=== PATIENT | male | born 1955 | race Caucasian/White ===

== ENCOUNTER 2017-05-25 10:20 | Emergency (ER) | payer BC, OTHER ==
[~2017-05-25] VITALS: Ht 162.6 cm; Wt 104.5 kg
[2017-05-25 10:28] VITALS: Ht 162.6 cm; Wt 104.5 kg
[2017-05-25] MEDS ORDERED: ONDANSETRON 4 MG INJ IV STA (10:58)
[2017-05-25] MEDS ORDERED: morphine 4 MG/ML VIAL IV STA (10:58)
[2017-05-25 11:47] LABS: BASOPHIL # 0.1 10^3/ul (0.0-0.1); BASOPHILS % 0.8 % (0.0-2.0); EOSINOPHILS # 0.2 10^3/ul (0.0-0.5); EOSINOPHILS % 2.3 % (0.0-7.0); HEMATOCRIT 41.5 % (42.0-52.0); HEMOGLOBIN 14.4 g/dl (14.0-18.0); LYMPHOCYTES # 3.9 10^3/ul (0.8-2.9); LYMPHOCYTES % 48.5 % (15.0-51.0); MEAN CORPUSCULAR HEMOGLOBIN 32.5 pg (29.0-33.0); MEAN CORPUSCULAR HGB CONC 34.7 g/dl (32.0-37.0); MEAN CORPUSCULAR VOLUME 93.7 fl (82.0-101.0); MEAN PLATELET VOLUME 10.8 fl (7.4-10.4); MONOCYTE # 0.9 10^3/ul (0.3-0.9); MONOCYTES % 11.1 % (0.0-11.0); NEUTROPHIL # 2.9 10^3/ul (1.6-7.5); PLATELET COUNT 128 10^3/UL (140-415); POSITIVE DIFF @See below; RED BLOOD COUNT 4.43 10^6/ul (4.70-6.10); RED CELL DISTRIBUTION WIDTH 12.3 % (11.5-14.5); WHITE BLOOD COUNT 7.9 10^3/ul (4.8-10.8)
[2017-05-25 11:50] LABS: ALBUMIN 4.4 g/dl (3.3-4.9); BILIRUBIN,INDIRECT 0.8 mg/dl (0-1.1); BILIRUBIN,TOTAL 0.8 mg/dl (0.2-1.3); CALCIUM 9.3 mg/dl (8.4-10.2); CREATININE 0.78 mg/dl (0.61-1.24); POTASSIUM 4.2 mmol/L (3.5-5.1)
[2017-05-25 11:55] LABS: ALBUMIN/GLOBULIN RATIO 1.33
[2017-05-25 11:58] LABS: TOTAL PROTEIN 7.7 g/dl (6.1-8.1)
--- NOTE | 2017-05-25 12:53 | RADRPT ---
PROCEDURE: CT Brain without contrast. CLINICAL INDICATION: Headache TECHNIQUE: A CT of the brain was performed on a multidetector CT scanner utilizing axial imaging f rom the skull base through the vertex without IV contrast. Multiplanar reformatted images were made . Images were reviewed on a PACS workstation. The CTDIvol is 43 mGy and the DLP is eighth 720 mGyc m. Individualized dosed optimization technique was used for the performance of this exam. This included 1. Automated exposure control. 2. Adjustment of the mA and / or kV according to the patient's size. 3. The use of iterative reconstruction technique. COMPARISON: None FINDINGS: There is no intracranial hemorrhage, mass effect, or midline shift. No extra-axial fluid collection is seen. The ventricles and sulci are normal in size and configuration. The density of the brain is normal, and the patricia white matter differentiation appears well-preserved. The visualized paranasal sinuses and osseous structures are grossly unremarkable. IMPRESSION: 1. No evidence of acute intracranial pathology. 2. The brain is normal in appearance. .Emory Leger MD, Date Time Electronically viewed and signed by .Emory Leger MD, on 05/25/2017 12:53 .A/
[2017-05-25] MEDS ORDERED: CEFTRIAXONE 1 GM/50 ML (PMX) 50 ML IVPB ONE (13:00)
[2017-05-25 13:02] VITALS: BP 133/75; PULSE 69; RESP 20
--- NOTE | 2017-05-25 13:28 | ERD ---
ER Documentation Chief Complaint Date/Time DATE: 05/25/17 TIME: 13:15 Chief Complaint PT with severe PENDLETON, has a healed ulcer on back. HPI 61-year-old male complaining of right-sided headache 3 days. Described headache as severe and constant, located in the right occipital to right parietal region. Patient reports lesions on the top of his scalp in the last 3 days. He also has a scab in the occipital region for the last month. Patient had left facial abscess about 1 year ago. Denies history of diabetes, hypertension, or other medical problems. He only takes vitamin supplements daily. ROS All systems reviewed and are negative except as per history of present illness. Medications Home Meds No Active Prescriptions or Reported Meds Allergies Allergies: Coded Allergies: No Known Allergy (Unverified , 01/04/16) PMhx/Soc History of Surgery: Yes (HERNIA ) Anesthesia Reaction: No Hx Alcohol Use: Yes Hx Substance Use: No Hx Tobacco Use: No Physical Exam Vitals Vital Signs Date Time Temp Pulse Resp B/P Pulse Ox O2 Delivery O2 Flow Rate FiO2 05/25/17 13:02 69 20 133/75 97 05/25/17 10:28 98.1 84 20 157/97 96 Physical Exam General: Well-developed, well-nourished, conscious and coherent, in no distress Skin: Warm and dry without rash, good texture and turgor Head: Normocephalic without evidence of trauma. A 2 cm area of skin ulcer closed by scab in the occipital region. No wound drainage. There are 2 erythematous lesions on the top of the scalp, approximately 2 cm in size each, all open without drainage. Right occipital and parietal area scalp tender to palpation, no induration or fluctuance. Eyes: Sclera and conjunctivae normal; pupils equal, round, and reactive to light; extraocular movements are intact Ears: Canals are patent. Tympanic membranes are clear Nose/Face: Without rhinorrhea Mouth/throat: Mucous membranes are moist. Posterior pharynx clear without erythema or exudates Neck: Supple without meningismus or adenopathy. Carotids are equal. Trachea midline. No bruits or JVD Chest: Normal AP diameter. Good expansion without retractions. Nontender. Lungs are clear to auscultate bilaterally with good tidal volume Heart: Regular rate and rhythm. No murmur, rub, or gallops heard Abdomen: Soft and nontender without masses, guarding, or rebound. Bowel sounds are active. No hepatosplenomegaly Extremities: Full range of motion. Good strength bilaterally. No clubbing, cyanosis, or edema. Peripheral pulses are intact. Sensation intact Neuro: Alert and oriented 4; GCS 15. Cranial nerves II - XII intact. Motor sensory exam nonfocal. Moves all extremities. Deep tendon reflexes 2+ in all extremities. Speech clear. No pronator drift. Gait steady. Result Diagram: 05/25/17 1100 05/25/17 1100 Results 24 hrs Laboratory Tests Test 05/25/17 11:00 White Blood Count 7.910^3/ul Red Blood Count 4.4310^6/ul Hemoglobin 14.4g/dl Hematocrit 41.5% Mean Corpuscular Volume 93.7fl Mean Corpuscular Hemoglobin 32.5pg Mean Corpuscular Hemoglobin Concent 34.7g/dl Red Cell Distribution Width 12.3% Platelet Count 78461^3/UL Mean Platelet Volume 10.8fl Neutrophils % 37.0% Lymphocytes % 48.5% Monocytes % 11.1% Eosinophils % 2.3% Basophils % 0.8% Nucleated Red Blood Cells % 0.0/100WBC Neutrophils # 2.910^3/ul Lymphocytes # 3.910^3/ul Monocytes # 0.910^3/ul Eosinophils # 0.210^3/ul Basophils # 0.110^3/ul Nucleated Red Blood Cells # 0.010^3/ul Sodium Level 137mmol/L Potassium Level 4.2mmol/L Chloride Level 101mmol/L Carbon Dioxide Level 26mmol/L Anion Gap 14 Blood Urea Nitrogen 12mg/dl Creatinine 0.78mg/dl Glucose Level 237mg/dl Calcium Level 9.3mg/dl Total Bilirubin 0.8mg/dl Direct Bilirubin 0.00mg/dl Indirect Bilirubin 0.8mg/dl Aspartate Amino Transf (AST/SGOT) 87IU/L Alanine Aminotransferase (ALT/SGPT) 71IU/L Alkaline Phosphatase 85IU/L Total Protein 7.7g/dl Albumin 4.4g/dl Globulin 3.30g/dl Albumin/Globulin Ratio 1.33 Current Medications Medications (Trade) Dose Ordered Sig/Johan Route PRN Reason Start Time Stop Time Status Last Admin Dose Admin Morphine Sulfate (morphine) 4 mg ONCE STAT IV 05/25/17 10:58 05/25/17 11:01 DC 05/25/17 11:22 Ondansetron HCl 4 mg 4 mg ONCE STAT IV 05/25/17 10:58 05/25/17 11:01 DC 05/25/17 11:22 Ceftriaxone Sodium (Rocephin) 50 ml @ 100 mls/hr ONCE ONCE IVPB 05/25/17 13:00 05/25/17 13:29 05/25/17 13:21 PROCEDURE: CT Brain without contrast. CLINICAL INDICATION: Headache TECHNIQUE: A CT of the brain was performed on a multidetector CT scanner utilizing axial imaging from the skull base through the vertex without IV contrast. Multiplanar reformatted images were made. Images were reviewed on a PACS workstation. The CTDIvol is 43 mGy and the DLP is eighth 720 mGycm. Individualized dosed optimization technique was used for the performance of this exam. This included 1. Automated exposure control. 2. Adjustment of the mA and / or kV according to the patient's size. 3. The use of iterative reconstruction technique. COMPARISON: None FINDINGS: There is no intracranial hemorrhage, mass effect, or midline shift. No extra- axial fluid collection is seen. The ventricles and sulci are normal in size and configuration. The density of the brain is normal, and the patricia white matter differentiation appears well-preserved. The visualized paranasal sinuses and osseous structures are grossly unremarkable. IMPRESSION: 1. No evidence of acute intracranial pathology. 2. The brain is normal in appearance. .Emory Leger MD, MD Date Time Electronically viewed and signed by .Emory Leger MD, on 05/25/2017 12: 53 .A/ CC: SELENA JEFFRIES [employer] Procedures/MDM 61-year-old male present ED with headache, likely secondary to scalp infection. CT head was obtained, no intracranial pathology is noted. No osseous abnormalities. WBC is not elevated. CMP is unremarkable except for glucose of 237, and mildly elevated AST and ALT. There does not appear to be bony involvement of his scalp infection. Patient denies having history of diabetes, his blood sugar is elevated. Patient has previously undiagnosed diabetes. Patient given morphine 4 mg and Zofran 4 mg IV in the ED. Patient reports improvement pain after the medications. Rocephin 1 g IV piggyback also given to the patient in the ED. Patient state that he does not have PCP, referral to community clinic is provided for the patient. Patient advised to follow-up with PCP for diabetes management. Metformin is prescribed for the patient today. Patient is also given referral to amputation prevention center for wound care. Patient appears well, stable for discharge and outpatient management. Medical decision making shared with patient and family. Education provided to patient and family. Patient and family expressed understanding of the plan. Medications on discharge: Ibuprofen, activity as, Keflex, metformin. Follow-up: Primary care provider in 2-3 days or return to ED if worse. The case was reviewed and discussed with Dr. Jimenez, who agrees with the plan of care including labs, treatment, and advanced imaging as appropriate. Disclaimer: Inadvertent spelling and grammatical errors are likely due to EHR/ dictation software use and do not reflect on the overall quality of patient care. Also, please note that the electronic time recorded on this note does not necessarily reflect the actual time of the patient encounter. Departure Diagnosis: Primary Impression: Infection of scalp Additional Impression: DM2 (diabetes mellitus, type 2) Diabetes mellitus complication status: without complication Diabetes mellitus residential insulin use: without terminal operator use Qualified Code: E11.9 - Type 2 diabetes mellitus without complication, without long-term current use of insulin Condition: Stable Patient Instructions: Cellulitis, Understanding Type 1 Diabetes [facility] Additional Instructions: Llame al doctor MAANA y victoria vaibhav MORGAN PARA DENTRO DE 2-3 GHOTRA.Dgale a la secretaria que nosotros le instruimos hacer esta morgan.Avise o llame si veras condicin se empeora antes de la morgan. Regresa aqui si peor o no mejor. SELENA JEFFRIES NP May 25, 2017 13:25
[2017-05-25] MEDS ORDERED: SULF1TAB31 PO (13:33)
[2017-05-25] MEDS ORDERED: CEPH-443 PO (13:33)
[2017-05-25] MEDS ORDERED: IBUP800T25 PO (13:33)
[2017-05-25] MEDS ORDERED: METF500T4 PO (13:33)
== END 2017-05-25 14:01 | disposition home or self-care (01) ==
LOC: FTE 10:20
DX: L08.9 Local infection of the skin and subcutaneous tissue, unspecified (principal); E11.9 Type 2 diabetes mellitus without complications; I10 Essential (primary) hypertension
CPT/HCPCS: 70450; 80053; 85025; 96374; 96375; 99285; J0696; J2270; J2405

== ENCOUNTER 2017-12-22 14:41 | Emergency (ER) | END 2017-12-22 17:42 | disposition home or self-care (01) ==